=== PATIENT | male | born 1935 | race Two or more races ===

== ENCOUNTER → 2021-05-07 | Emergency (ER) | payer OTHER ==
[~2021-05-07] VITALS: Ht 175.3 cm; Wt 74.4 kg
[~2021-05-07] MED LIST: ACETAMINOPHEN/CODEINE#3 (300/30mg) TAB PO ONE; ONDANSETRON ODT 4 MG TAB PO ONE
[2021-05-07 12:23] VITALS: BP 167/60
== END | disposition home or self-care (01) ==
LOC: ER 12:21
DX: S22.42XA Multiple fractures of ribs, left side, initial encounter for closed fracture (principal); I10 Essential (primary) hypertension; Z90.89 Acquired absence of other organs; W01.0XXA Fall on same level from slipping, tripping and stumbling without subsequent striking against object, initial encounter; Y93.89 Activity, other specified; Y92.89 Other specified places as the place of occurrence of the external cause; Y99.8 Other external cause status
CPT/HCPCS: 71046; 71250; 99284; Q0162

== ENCOUNTER 2022-04-03 22:34 | Inpatient (IN) | payer OTHER ==
[~2022-04-03] VITALS: Ht 172.7 cm; Wt 78.8 kg
[2022-04-03 23:51] LABS: Basophils # (auto) 0.1 10 ^3/uL (0-0.2); Basophils % (auto) 1.1 % (0.0-2.0); Eosinophils # (auto) 0.4 10 ^3/uL (0-0.8); Eosinophils % (auto) 4.5 % (0.0-7.0); Hematocrit 47.8 % (41.0-53.0); Hemoglobin 16.2 g/dL (13.5-17.5); Lymphocytes # (auto) 2.3 10 ^3/uL (0.4-5.4); Mean Corpuscular Hemoglobin 31.8 pg (28.0-32.0); Mean Corpuscular Volume 93.8 fL (80.0-100.0); Monocytes # (auto) 0.8 10 ^3/uL (0-1.3); Monocytes % (auto) 8.4 % (0.0-12.0); Nucleated Red Blood Cells % 0.3 %; Red Blood Cells 5.09 10^6/uL (4.5-5.90); Red Cell Distribution Width 13.3 % (11.8-14.3); White Blood Cell 9.7 10^3/uL (4.4-10.8)
[2022-04-04 00:15] LABS: BUN/Creatinine Ratio 17.3; Calcium 11.2 mg/dL (8.5-10.1); Potassium 4.5 mmol/L (3.5-5.1)
[2022-04-04 00:22] LABS: Bilirubin, Total 0.4 mg/dL (0.2-1.0); Total Protein 6.7 g/dL (6.4-8.2)
[2022-04-04] MEDS ORDERED: MORPHINE SULFATE INJ 2 MG/ml SYRG IV PRN (06:30)
[2022-04-04] MEDS ORDERED: ACETAMINOPHEN 325 MG TAB PO PRN (06:30)
[2022-04-04] MEDS ORDERED: ONDANSETRON HCL 4 MG/2 ML VIAL IV PRN (06:30)
[2022-04-04] MEDS ORDERED: NITROGLYCERIN 0.4 MG SL TAB SL PRN (06:30)
[2022-04-04 07:29] LABS: Cholesterol 148 mg/dL (< 200); HDL Cholesterol 43 mg/dL (40-59); LDL Cholesterol 108 mg/dL (< 100); Triglycerides 50 mg/dL (< 150)
[2022-04-04] MEDS: ENOXAPARIN SOD 40 MG/0.4 ML SYRINGE SC SCH (09:27)
[2022-04-04] MEDS: LOSARTAN POTASSIUM 50 MG TAB PO SCH (09:27)
[2022-04-04] MEDS: PANTOPRAZOLE 40 MG TAB PO SCH (09:28)
[2022-04-04] MEDS: ASPirin 81 mg TAB PO SCH (09:28)
[2022-04-04 22:00] VITALS: BP 136/83
[2022-04-04] MEDS: ATORVASTATIN 20 MG TAB PO SCH (22:14)
[2022-04-05 05:00] VITALS: BP 121/79
[2022-04-05 06:35] LABS: Basophils # (auto) 0 10 ^3/uL (0-0.2); Basophils % (auto) 0.5 % (0.0-2.0); Eosinophils # (auto) 0.5 10 ^3/uL (0-0.8); Eosinophils % (auto) 5.6 % (0.0-7.0); Hematocrit 45.1 % (41.0-53.0); Hemoglobin 15.6 g/dL (13.5-17.5); Lymphocytes # (auto) 1.9 10 ^3/uL (0.4-5.4); Lymphocytes % (auto) 21.6 % (10.0-50.0); Mean Corpuscular Hemoglobin 32.4 pg (28.0-32.0); Mean Corpuscular Hgb Conc. 34.6 g/dL (32.0-36.0); Mean Corpuscular Volume 93.6 fL (80.0-100.0); Monocytes # (auto) 0.7 10 ^3/uL (0-1.3); Monocytes % (auto) 8.3 % (0.0-12.0); Neutrophils # (auto) 5.6 10 ^3/uL (1.6-8.6); Red Blood Cells 4.82 10^6/uL (4.5-5.90); Red Cell Distribution Width 13.5 % (11.8-14.3); White Blood Cell 8.7 10^3/uL (4.4-10.8)
[2022-04-05 06:46] LABS: Calcium 10.5 mg/dL (8.5-10.1); Potassium 4.5 mmol/L (3.5-5.1)
[2022-04-05 06:47] LABS: BUN/Creatinine Ratio 14.1
[2022-04-05] MEDS ORDERED: PANT40TA2 PO (06:49)
[2022-04-05 08:00] VITALS: BP 114/68
[2022-04-05] MEDS ORDERED: ADENOSINE 60 MG in GIVE UN-DILUTED 0 ML IV ONE (08:30)
[2022-04-05 09:00] VITALS: BP 114/68
[2022-04-05] MEDS: LOSARTAN POTASSIUM 50 MG TAB PO SCH (10:00)
[2022-04-05] MEDS: ASPirin 81 mg TAB PO SCH (10:00)
[2022-04-05] MEDS: ENOXAPARIN SOD 40 MG/0.4 ML SYRINGE SC SCH (10:00)
[2022-04-05] MEDS: PANTOPRAZOLE 40 MG TAB PO SCH (10:00)
[2022-04-05 13:00] VITALS: BP 110/70
[2022-04-05 16:35] VITALS: BP 104/74
[2022-04-05 22:00] VITALS: BP 115/68
[2022-04-05] MEDS: ATORVASTATIN 20 MG TAB PO SCH (22:12)
[2022-04-06 05:00] VITALS: BP 107/57
[2022-04-06 07:55] VITALS: BP 114/61
[2022-04-06 08:00] VITALS: BP 114/61
[2022-04-06] MEDS: ASPirin 81 mg TAB PO SCH (10:06)
[2022-04-06] MEDS: ENOXAPARIN SOD 40 MG/0.4 ML SYRINGE SC SCH (10:06)
[2022-04-06] MEDS: PANTOPRAZOLE 40 MG TAB PO SCH (10:06)
[2022-04-06] MEDS: LOSARTAN POTASSIUM 50 MG TAB PO SCH (10:07)
[2022-04-06 10:09] VITALS: BP 114/61
[2022-04-06 11:55] VITALS: BP 118/72
[2022-04-07] MEDS ORDERED: TRIA0.02 TOP (13:37)
[2022-04-07] MEDS ORDERED: CEPH-510 PO (13:37)
== END 2022-04-06 13:52 | disposition home or self-care (01) | DRG 313 ==
LOC: EDBD 22:34 → ER 22:36 → TELE 04-04 06:24 → TELE-WESTW 04-04 21:00
PROVIDERS: ADMIT Nurse Practitioner; ATTEND Student in an Organized Health Care Education/Training Program
DX: R07.89 Other chest pain (principal); K21.9 Gastro-esophageal reflux disease without esophagitis; Z20.822 Contact with and (suspected) exposure to COVID-19; E11.9 Type 2 diabetes mellitus without complications; E78.00 Pure hypercholesterolemia, unspecified; I10 Essential (primary) hypertension; M81.0 Age-related osteoporosis without current pathological fracture; Z85.46 Personal history of malignant neoplasm of prostate
CPT/HCPCS: 36415; 71045; 78452; 80048; 80053; 80061; 83880; 84484; 85025; 87426; 93005; 93017; 93306; 96372; 99291; G0378; J0153

== ENCOUNTER 2022-04-07 10:48 | Emergency (ER) | payer OTHER ==
[~2022-04-07 10:48] MED LIST changes: -ACETAMINOPHEN/CODEINE#3 (300/30mg) TAB PO ONE; -ONDANSETRON ODT 4 MG TAB PO ONE; +PANT40TA2 PO
[2022-04-07 11:52] VITALS: BP 131/80
[2022-04-07] MEDS ORDERED: CEPH-510 PO (13:37)
[2022-04-07] MEDS ORDERED: TRIA0.02 TOP (13:37)
== END 2022-04-07 13:40 | disposition home or self-care (01) ==
LOC: ER 10:48
DX: I82.601 Acute embolism and thrombosis of unspecified veins of right upper extremity (principal); L08.9 Local infection of the skin and subcutaneous tissue, unspecified; I10 Essential (primary) hypertension; K21.9 Gastro-esophageal reflux disease without esophagitis; Z90.89 Acquired absence of other organs; Z79.2 Long term (current) use of antibiotics; Z79.899 Other long term (current) drug therapy; Z88.2 Allergy status to sulfonamides; X58.XXXA Exposure to other specified factors, initial encounter; Y93.89 Activity, other specified; Y92.89 Other specified places as the place of occurrence of the external cause; Y99.8 Other external cause status
CPT/HCPCS: 93971